=== PATIENT | female | born 1960 | race Hispanic/Latino ===

== ENCOUNTER 2017-10-17 17:24 | Observation (INO) | payer OTHER ==
[2017-10-17 17:55] LABS: #Basophils 0.1 thou/uL (0.0-0.2); #Eosinphils 0.2 thou/uL (0.0-0.7); #Monocytes 0.4 thou/uL (0.11-0.59); #Neutrophils 2.9 thou/uL (1.40-6.50); %Basophils 0.9 % (0.0-1.0); %Eosinophils 3.4 % (0.0-10.0); %Lymphocytes 45.9 % (21.0-51.0); %Monocytes 5.6 % (0.0-10.0); %Neutrophils 44.2 % (42.0-75.0); Hemoglobin 14.4 g/dL (12.0-16.0); Mean Corpuscular HGB CONC 35.8 g/dL (32.0-36.0); Mean Corpuscular Hemoglobin 33.3 pg (27.0-31.0); Mean Corpuscular Volume 93.2 fl (81.0-99.0); Mean Platelet Volume 7.8 fL (7.4-10.4); Platelet Count 294 thou/uL (130-400); RBC Distribution Width 11.1 % (11.5-14.5); Red Blood Cell (RBC) Count 4.32 mill/uL (4.20-5.40); White Blood Cell (WBC) Count 6.6 thou/uL (4.8-10.8)
[2017-10-17] MEDS ORDERED: Nitroglycerin 2% Ointment 1 INCH/1 GM Packet ONE (18:06)
--- NOTE | 2017-10-17 18:13 | RAD ---
TWO VIEWS CHEST: History: Chest pain. Date: 10-17-17 Comparison: 07-09-10 FINDINGS: Two views of the chest demonstrate the lungs to be well aerated. No evidence of active intrathoracic disease seen. No evidence of effusion, pneumonia, or pneumothorax seen. IMPRESSION: Unremarkable two views chest. POS: [facility]
[2017-10-17 18:18] LABS: CKMB 0.9 ng/mL (0-6.6); Troponin I Less than 0.010 ng/mL (< 0.028)
[2017-10-17 18:28] LABS: ALT (SGPT) 19 U/L (8-55); AST (SGOT) 21 U/L (5-34); Alkaline Phosphatase 89 U/L (40-150); Anion Gap 11 mmol/L (10-20); BUN (Urea Nitrogen) 18 mg/dL (9.8-20.1); Bilirubin, Total 0.9 mg/dL (0.2-1.2); CK (CPK) 59 U/L (29-168); Calc. Creatinine Clearance 0 mL/min (70-130); Calcium 9.7 mg/dL (7.8-10.44); Carbon Dioxide 25 mmol/L (22-29); Chloride 108 mmol/L (98-107); Estimated GFR-MDRD 82; Glucose 133 mg/dL (70-105); Lipase 41 U/L (8-78); Potassium 4.2 mmol/L (3.5-5.1); Sodium 140 mmol/L (136-145)
[2017-10-17 21:06] LABS: Troponin I Less than 0.010 ng/mL (< 0.028)
[2017-10-17 21:33] VITALS: BMI 49.8
[2017-10-18 00:02] LABS: Troponin I Less than 0.010 ng/mL (< 0.028)
[2017-10-18] MEDS ORDERED: Acetaminophen 325 MG TAB PO PRN (02:12)
[2017-10-18] MEDS ORDERED: Nitroglycerin 0.4 MG TAB (25 Tab Bottle) PO PRN (02:14)
[2017-10-18 04:48] LABS: #Eosinphils 0.2 thou/uL (0.0-0.7); #Lymphocytes 2.3 thou/uL (1.20-3.40); #Monocytes 0.3 thou/uL (0.11-0.59); #Neutrophils 1.9 thou/uL (1.40-6.50); %Basophils 0.5 % (0.0-1.0); %Eosinophils 4.2 % (0.0-10.0); %Lymphocytes 48.4 % (21.0-51.0); %Neutrophils 39.9 % (42.0-75.0); Mean Corpuscular HGB CONC 35.1 g/dL (32.0-36.0); Mean Corpuscular Hemoglobin 32.3 pg (27.0-31.0); Mean Platelet Volume 7.5 fL (7.4-10.4); Platelet Count 243 thou/uL (130-400); RBC Distribution Width 11.1 % (11.5-14.5); Red Blood Cell (RBC) Count 4.03 mill/uL (4.20-5.40); White Blood Cell (WBC) Count 4.8 thou/uL (4.8-10.8)
--- NOTE | 2017-10-18 04:57 | HP ---
CHIEF COMPLAINT: Chest pain. PRIMARY CARE PHYSICIAN: Dr. Houston Weems. HISTORY OF PRESENT ILLNESS: The patient is a very pleasant 57-year-old female with no past medical h istory who presents to the hospital with complaints of chest pain. Patient stated that she was sitti ng and watching TV when she started having sharp substernal chest pain, denies any radiation, denies any palpitations or shortness of breath. She states that she has never had this pain before. The pa tativinod stated that she has had a stress test long time ago. The patient initially thought that she altamirano d most likely heartburn, so she took some Maalox and some Milk of Magnesia; however, the pain did not improve, so she came into the ER for further treatment. PAST MEDICAL HISTORY: None. PAST SURGICAL HISTORY: She had and cholecystectomy. SOCIAL HISTORY: She is a nonsmoker, no alcohol, and no drug use. MEDICATIONS: She takes none. ALLERGIES: She has no known allergies. FAMILY HISTORY: Father had a heart attack at the age of 60s and . Mother had liver cancer. [place]wo[place] ther has a stent. REVIEW OF SYSTEMS: A 14-point review of systems all negative except for the ones mentioned above in the HPI. PHYSICAL EXAMINATION: VITAL SIGNS: Temperature of 97.6, heart rate 64, respirations 18, 98% on room air, and blood pressur e 127/58. GENERAL: The patient is awake, alert, oriented x3, does not appear any distress. CARDIOVASCULAR: S1, S2 present. No murmurs, rubs, or gallops. HEENT: Normocephalic, atraumatic. NECK: No lymphadenopathy noted. LUNGS: Clear to auscultation. No rhonchi or wheezes noted. Chest pain is reproducible on palpation to her left chest wall area. ABDOMEN: Soft, nontender. Bowel sounds are present x2. No hepatomegaly, splenomegaly noted. SKIN: No rashes or abnormalities noted. Skin is dry and intact. EXTREMITIES: Pedal pulses are present x2. No edema. NEUROLOGIC: She has got no focal deficits. Alert, oriented x3. PSYCHIATRIC: Normal affect. LABORATORY RESULTS: Are as the following: WBC of 6.6, hemoglobin of 14.4, hematocrit of 40.3, plate lets of 294. Chemistry: Sodium of 140, potassium of 4.2, BUN of 18, creatinine 0.73, glucose of 133 . Her troponins x3 were negative. EKG normal sinus rhythm, no ST elevation or depression noted. Ch est x-ray unremarkable, no abnormalities noted. ASSESSMENT AND PLAN: The patient is a very pleasant 57-year-old female who comes to the hospital wit h complaints of chest pain. 1. Atypical chest pain, most likely noncardiac in nature; however, given patient's age and some risk factors, we will undergo a stress test. The patient also has a family history of early heart diseas e, obesity, and given her age of 57 and being female. The patient's D-dimer was normal. We will als o check a lipid panel and a hemoglobin A1c. 2. Obesity. We will educate patient on diet and exercise and weight loss. 3. Deep venous thrombosis prophylaxis. We will put patient on subcu heparin.
[2017-10-18 05:07] LABS: Hemoglobin A1c 5.9 % (4.0-6.0)
[2017-10-18 05:08] LABS: Anion Gap 7 mmol/L (10-20); BUN (Urea Nitrogen) 17 mg/dL (9.8-20.1); Calc. Creatinine Clearance 171 mL/min (70-130); Calcium 8.8 mg/dL (7.8-10.44); Carbon Dioxide 27 mmol/L (22-29); Cardiac Risk 3.8 (Less than 4.5); Chloride 109 mmol/L (98-107); Cholesterol 153 mg/dl (< 200 Desired); Estimated GFR-MDRD Greater than 90; Glucose 124 mg/dL (70-105); HDL Cholesterol 40 mg/dL (>60 Neg Risk); LDL Cholesterol, Calculated 88 mg/dL; Potassium 3.7 mmol/L (3.5-5.1); Sodium 139 mmol/L (136-145); Triglycerides 124 mg/dL (Less than 150)
[2017-10-18] MEDS: Enoxaparin Sodium 40 MG/0.4 ML SYRINGE SC SCH (08:55)
[2017-10-18] MEDS: Aspirin 325 MG TAB PO SCH (08:55)
[2017-10-18] MEDS ORDERED: Sucralfate 1 GM TAB PO SCH (14:30)
[2017-10-18] MEDS: Sucralfate 1 GM TAB PO SCH ×2 (14:43→20:15)
[2017-10-18] MEDS ORDERED: Pantoprazole 40 MG VIAL IVP SCH (15:00)
[2017-10-19] MEDS: Enoxaparin Sodium 40 MG/0.4 ML SYRINGE SC SCH ×2 (08:55→08:56)
[2017-10-19] MEDS: Sucralfate 1 GM TAB PO SCH ×2 (08:55→11:49)
[2017-10-19] MEDS: Aspirin 325 MG TAB PO SCH (08:55)
--- NOTE | 2017-10-19 11:02 | NM ---
MYOCARDIAL PERFUSION EVALUATION: CLINICAL HISTORY: 57-year-old female with chest pain. Please reference the stress EKG portion of this exam through the division of cardiology for further d etail. FINDINGS: There is no significant fixed or reversible defect of the left ventricular isbell. There is a mild deg ree of dyskinesia involving left ventricular isbell with a borderline low degree of contractility, wit h a calculated LVEF at 54%. IMPRESSION: 1. No significant ischemic or scar. 2. Borderline LVEF at 54%, with a mild degree of left ventricular dyskinesia. Correlation with echoc ardiogram would prove useful. POS: [facility]
[2017-10-19 11:42] VITALS: BP 112/58; TEMP 98.1
== END 2017-10-19 12:39 | disposition home or self-care (01) ==
LOC: ERS 17:24 → 2SW 19:42
PROVIDERS: ADMIT Family Medicine; ATTEND Family Medicine
DX: R07.89 Other chest pain (principal); E66.9 Obesity, unspecified; Z68.42 Body mass index [BMI] 45.0-49.9, adult
CPT/HCPCS: 36415; 71046; 78452; 80048; 80053; 80061; 82550; 82553; 83036; 83690; 84484; 85025; 85379; 93005; 93017; 94760; 96372; 96374; A4216; A9500; C9113; G0378; J0153; J1650

== ENCOUNTER 2019-08-27 06:52 | Emergency (ER) | payer BC, OTHER ==
[2019-08-27 07:27] LABS: #Eosinphils 0.2 thou/uL (0.0-0.7); #Lymphocytes 1.2 thou/uL (1.20-3.40); #Monocytes 0.3 thou/uL (0.11-0.59); #Neutrophils 2.1 thou/uL (1.40-6.50); %Monocytes 8.9 % (0.0-10.0); %Neutrophils 54.2 % (42.0-75.0); Hemoglobin 14.2 g/dL (12.0-16.0); Mean Corpuscular HGB CONC 35.5 g/dL (32.0-36.0); Mean Corpuscular Hemoglobin 32.2 pg (27.0-31.0); Mean Corpuscular Volume 90.8 fL (78.0-98.0); Platelet Count 213 thou/uL (130-400); RBC Distribution Width 11.3 % (11.5-14.5); Red Blood Cell (RBC) Count 4.41 mill/uL (4.20-5.40); White Blood Cell (WBC) Count 3.9 thou/uL (4.8-10.8)
[2019-08-27 07:43] LABS: ALT (SGPT) 27 U/L (8-55); AST (SGOT) 31 U/L (5-34); Albumin 3.8 g/dL (3.5-5.0); Alkaline Phosphatase 90 U/L (40-110); Anion Gap 16 mmol/L (10-20); BUN (Urea Nitrogen) 13 mg/dL (9.8-20.1); Bilirubin, Total 1.1 mg/dL (0.2-1.2); Calc. Creatinine Clearance 0 mL/min (70-130); Calcium 9.1 mg/dL (7.8-10.44); Carbon Dioxide 17 mmol/L (22-29); Chloride 109 mmol/L (98-107); Estimated GFR-MDRD Greater than 90; Glucose 150 mg/dL (70-105); Lipase 37 U/L (8-78); Potassium 3.9 mmol/L (3.5-5.1); Protein, Total 6.8 g/dL (6.0-8.3); Sodium 138 mmol/L (136-145)
[2019-08-27 09:11] LABS: Bacteria/HPF None Seen HPF (None Seen); Bilirubin Negative (Negative); Blood, Urine Trace (Negative); Clarity Clear (Clear); Glucose, Urine (Dipstick) Normal (Negative); Leukocyte Negative Leu/uL (Negative); Nitrite Negative (Negative); Protein, Urine (Dipstick) Negative (Neg-Trace); RBC/HPF 0-3 HPF (0-3); Squamous Epithelial 0-3 HPF (0-3); Urobilinogen Normal mg/dL (Less than 2); WBC/HPF 0-3 HPF (0-3)
== END 2019-08-27 10:14 | disposition home or self-care (01) ==
LOC: ERS 06:52
DX: B02.9 Zoster without complications (principal); E11.9 Type 2 diabetes mellitus without complications; E78.5 Hyperlipidemia, unspecified; Z79.899 Other long term (current) drug therapy; Z79.84 Long term (current) use of oral hypoglycemic drugs
CPT/HCPCS: 36415; 80053; 81003; 81015; 83690; 85025; 93005